=== PATIENT | female | born 1985 | race Caucasian/White ===

== ENCOUNTER 2020-09-28 08:03 | Observation (INO) ==
[~2020-09-28 08:03] MED LIST: Vancomycin 2,000 MG/520 ML IV.SOLN IVPB ONE
[2020-09-28] MEDS ORDERED: CeFAZolin Syr 3,000MG/30 ML 3,000 MG/30 ML SYRINGE IVPB ONE (08:24)
[2020-09-28] MEDS ORDERED: *HR* Rocuronium Bromide 50 MG/5 ML VIAL ONE (09:07)
[2020-09-28] MEDS ORDERED: *HR* Midazolam HCl 2 MG/2 ML VIAL ONE (09:07)
[2020-09-28] MEDS ORDERED: Dexamethasone 4 MG/ML VIAL ONE ×2 (09:07→13:08)
[2020-09-28] MEDS ORDERED: Lidocaine HCL 4 ML Topical Solution (Laryng-O-Jet Kit Sterile Pak) TP ONE (09:07)
[2020-09-28] MEDS ORDERED: Lidocaine -MPF 2% 2 ML VIAL ONE (09:07)
[2020-09-28] MEDS ORDERED: Ondansetron 4 MG/2 ML VIAL ONE (09:07)
[2020-09-28] MEDS ORDERED: *HR* Propofol 200 MG/20 ML VIAL IVP ONE ×2 (09:07→11:18)
[2020-09-28] MEDS ORDERED: Scopolamine Patch 1.5 MG PATCH.TD72 TD ONE (09:13)
[2020-09-28] MEDS ORDERED: Ondansetron 4 MG/2 ML VIAL IVP PRN (09:14)
[2020-09-28] MEDS ORDERED: Promethazine 6.25 MG in Water for inj. (sterile) 20 ML IVPB PRN (09:14)
[2020-09-28] MEDS ORDERED: *HR* OxyCODONE Immed Rel 5 MG TABLET PO PRN (09:14)
[2020-09-28] MEDS: Ringers Solution, Lactated 1,000 ML IVC SCH ×2 (09:25→15:43)
[2020-09-28] MEDS ORDERED: *HR* Remifentanil 1 MG VIAL IVP ONE ×2 (09:42→12:34)
[2020-09-28] MEDS ORDERED: *HR* Phenylephrine 10 MG/ML VIAL ONE ×2 (10:11→14:05)
[2020-09-28] MEDS ORDERED: Bacitracin 50,000 UNIT, Polymyxin B Sulfate 500,000 UNIT, Sodium Chloride IRRigation 1,... IR ONE (10:15)
[2020-09-28] MEDS ORDERED: EPHEDrine 50 MG/ML VIAL ONE (10:54)
[2020-09-28] MEDS ORDERED: *HR* HYDROMORPHONE 2 MG/ML VIAL ONE (14:36)
[2020-09-28] MEDS ORDERED: *HR* PHENYLEPHRINE 1,000 MCG/10 ML SYRINGE IVP ONE (14:48)
[2020-09-28] MEDS: *HR* HYDROmorphone PF 0.5 MG/0.5 ML SYRINGE IVP PRN ×4 (15:16→16:00)
[2020-09-28] MEDS: *HR* OxyCODONE Immed Rel 5 MG TABLET PO PRN ×2 (18:45→23:06)
[2020-09-28] MEDS ORDERED: *HR* Metformin 500 MG TABLET PO SCH (22:25)
[2020-09-28] MEDS ORDERED: lamoTRIgine 100 MG TABLET PO SCH (22:30)
[2020-09-28] MEDS: CeFAZolin 2 GM/120 ML BAG IVPB SCH (23:19)
[2020-09-29] MEDS ORDERED: Naloxone 0.4 MG/ML INJ IVP PRN (05:51)
[2020-09-29] MEDS ORDERED: CeFAZolin 2 GM/120 ML BAG IVPB SCH (05:51)
[2020-09-29] MEDS ORDERED: Ondansetron 4 MG/2 ML VIAL IVP PRN (05:51)
[2020-09-29] MEDS ORDERED: *HR* HYDROcodone/Acet 5/325 mg TABLET PO PRN (05:51)
[2020-09-29] MEDS ORDERED: Acetaminophen 325 MG TABLET PO PRN (05:51)
[2020-09-29] MEDS ORDERED: Ringers Solution, Lactated 1,000 ML IVC SCH (05:51)
[2020-09-29] MEDS: CeFAZolin 2 GM/120 ML BAG IVPB SCH (06:30)
[2020-09-29] MEDS: *HR* OxyCODONE Immed Rel 5 MG TABLET PO PRN ×2 (06:31→13:35)
[2020-09-29] MEDS ORDERED: *HR* Metformin 500 MG TABLET PO SCH (08:00)
[2020-09-29] MEDS: Budesonide/Formoterol 80/4.5 1 PUFF INH IH SCH ×2 (08:14→20:10)
[2020-09-29] MEDS ORDERED: atenoloL 50 MG TABLET PO SCH (09:00)
[2020-09-29] MEDS ORDERED: Bumetanide 1 MG TABLET PO SCH (09:00)
[2020-09-29] MEDS ORDERED: lisinopriL 20 MG TABLET PO SCH (09:00)
[2020-09-29] MEDS: tiZANidine 4 MG TABLET PO SCH ×3 (09:14→21:47)
[2020-09-29] MEDS: Venlafaxine XR (24 HR) 150 MG CAP.ER.24H PO SCH (09:15)
[2020-09-29] MEDS: *HR* Metformin 500 MG TABLET PO SCH ×3 (09:15→21:47)
[2020-09-29] MEDS: lamoTRIgine 100 MG TABLET PO SCH (09:16)
[2020-09-29] MEDS: Pregabalin 75 MG CAPSULE PO SCH ×3 (09:16→21:47)
[2020-09-29] MEDS: Vilazodone Hcl [Viibryd] PO SCH (09:19)
[2020-09-29] MEDS: LINACLOTIDE 145 MCG PO SCH (09:19)
[2020-09-29] MEDS: ESTARYLLA PO SCH (09:19)
[2020-09-29] MEDS: Cyprohepatdine 4 MG TABLET PO SCH ×2 (09:20→21:45)
[2020-09-29] MEDS ORDERED: 0.9 % Sodium Chloride 500 ML IVC ONE (18:10)
[2020-09-29] MEDS ORDERED: 0.9 % Sodium Chloride 1,000 ML IVC SCH (18:15)
[2020-09-29 18:37] LABS: Basophils # 0.1 K/mcL (0.0-0.2); Basophils % 0.5 %; Eosinophils # 0.1 K/mcL (0.0-0.6); Eosinophils % 0.5 %; Hematocrit 33.3 % (35.3-44.9); Hemoglobin 10.6 g/dL (11.5-15.4); Immature Granulocytes % 0.6 % (0-4); Lymphocytes # 2.3 K/mcL (0.6-4.6); Lymphocytes % 17.5 %; Mean Corpuscular HGB Conc 31.8 g/dL (31.6-35.5); Mean Corpuscular Hemoglobin 28.7 pg (28.0-33.3); Mean Corpuscular Volume 90.2 fL (83.0-100.0); Monocytes # 0.9 K/mcL (0.0-1.3); Monocytes % 7.1 %; Neutrophils # 9.7 K/mcL (1.6-8.9); Platelet Count 234 K/mcL (140-400); Red Blood Count 3.69 M/mcL (3.82-4.97); Segmented Neutrophils % 73.8 %; White Blood Count 13.2 K/mcL (4.3-11.1)
[2020-09-29 18:58] LABS: BUN/Creatinine Ratio 14 (6-26); Blood Urea Nitrogen 18 mg/dL (6-20); Calcium 8.5 mg/dL (8.6-10.3); Carbon Dioxide 25 mEq/L (23-29); Chloride 107 mEq/L (98-107); Glucose 134 mg/dL (70-105); Osmolality,Calculated 290 (280-300); Potassium 4.4 mEq/L (3.5-5.1); Sodium 138 mEq/L (136-145); eGFR For African Americans 56 (> 60); eGFR For Non-African Americans 46 (> 60)
[2020-09-29 19:20] LABS: Troponin I < 0.03 ng/mL (< 0.04)
[2020-09-29] MEDS ORDERED: traZODone 50 MG TABLET PO SCH (21:00)
[2020-09-29] MEDS ORDERED: Ketorolac 30 MG/ML VIAL IVP ONE (21:58)
[2020-09-29] MEDS ORDERED: 0.9 % Sodium Chloride 1,000 ML IVC ONE (23:14)
[2020-09-30] MEDS ORDERED: 0.9 % Sodium Chloride 1,000 ML IVC ONE (01:19)
[2020-09-30 02:37] LABS: Hematocrit 34.1 % (35.3-44.9); Hemoglobin 10.8 g/dL (11.5-15.4)
[2020-09-30] MEDS ORDERED: 0.9 % Sodium Chloride 500 ML IVC SCH (03:32)
[2020-09-30] MEDS ORDERED: 0.9 % Sodium Chloride 500 ML IVC ONE ×2 (03:45→04:00)
[2020-09-30 07:34] LABS: BUN/Creatinine Ratio 21 (6-26); Blood Urea Nitrogen 20 mg/dL (6-20); Carbon Dioxide 23 mEq/L (23-29); Chloride 107 mEq/L (98-107); Glucose 109 mg/dL (70-105); Osmolality,Calculated 287 (280-300); Potassium 3.9 mEq/L (3.5-5.1); Sodium 137 mEq/L (136-145); eGFR For African Americans > 60 (> 60); eGFR For Non-African Americans > 60 (> 60)
[2020-09-30] MEDS: Pregabalin 75 MG CAPSULE PO SCH (08:59)
[2020-09-30] MEDS: lamoTRIgine 100 MG TABLET PO SCH (08:59)
[2020-09-30] MEDS: Venlafaxine XR (24 HR) 150 MG CAP.ER.24H PO SCH (09:00)
[2020-09-30] MEDS: Vilazodone Hcl [Viibryd] PO SCH (09:01)
[2020-09-30] MEDS: *HR* Metformin 500 MG TABLET PO SCH (09:01)
[2020-09-30] MEDS: ESTARYLLA PO SCH (09:03)
[2020-09-30] MEDS: Cyprohepatdine 4 MG TABLET PO SCH (09:04)
[2020-09-30] MEDS: tiZANidine 4 MG TABLET PO SCH (09:05)
[2020-09-30] MEDS: LINACLOTIDE 145 MCG PO SCH (09:05)
[2020-09-30] MEDS: Budesonide/Formoterol 80/4.5 1 PUFF INH IH SCH (10:44)
[2020-09-30 10:52] VITALS: BP 129/74
[2020-09-30] MEDS: *HR* OxyCODONE Immed Rel 5 MG TABLET PO PRN (11:04)
== END 2020-09-30 12:45 | disposition home or self-care (01) ==
LOC: SAMDAY 08:03 → 3NENU 08:03
PROVIDERS: ADMIT Orthopaedic Surgery Orthopaedic Surgery of the Spine; ATTEND Orthopaedic Surgery Orthopaedic Surgery of the Spine

== ENCOUNTER 2022-03-27 06:08 | Inpatient (IN) ==
[2022-03-27] MEDS ORDERED: CeFAZolin Syr 2,000MG/20 ML 2,000 MG/20 ML SYRINGE IVPB ONE (06:48)
[2022-03-27] MEDS ORDERED: Ondansetron 4 MG/2 ML VIAL IVP PRN ×2 (07:00→10:28)
[2022-03-27] MEDS ORDERED: Famotidine 20 MG/2 ML VIAL IVP ONE (07:00)
[2022-03-27] MEDS ORDERED: Ringers Solution, Lactated 1,000 ML IVC SCH ×2 (07:00→10:28)
[2022-03-27] MEDS ORDERED: Acetaminophen IV 1,000 MG/100 ML BAG IVPB ONE (07:00)
[2022-03-27] MEDS ORDERED: *HR* HYDROmorphone PF 0.5 MG/0.5 ML SYRINGE IVP PRN (07:00)
[2022-03-27] MEDS ORDERED: Scopolamine Patch 1.5 MG PATCH.TD72 TD ONE (07:12)
[2022-03-27] MEDS ORDERED: Vancomycin 1,000 MG VIAL ONE (07:15)
[2022-03-27] MEDS ORDERED: *HR* Midazolam HCl 2 MG/2 ML VIAL ONE (07:18)
[2022-03-27] MEDS ORDERED: *HR* Propofol 200 MG/20 ML VIAL IVP ONE (07:18)
[2022-03-27] MEDS ORDERED: *HR* FentaNYL (PF) 100 MCG/2 ML VIAL ONE (07:18)
[2022-03-27] MEDS ORDERED: Celecoxib 200 MG CAPSULE PO ONE (07:30)
[2022-03-27] MEDS ORDERED: Lidocaine -MPF 2% 5 ML VIAL ONE (07:32)
[2022-03-27] MEDS ORDERED: Ondansetron 4 MG/2 ML VIAL ONE (07:32)
[2022-03-27] MEDS ORDERED: *HR* Succinylcholine 200 MG/10 ML VIAL IVP ONE (07:32)
[2022-03-27] MEDS ORDERED: *HR* Rocuronium Bromide 50 MG/5 ML VIAL ONE (07:32)
[2022-03-27] MEDS ORDERED: Lidocaine HCL 4 ML Topical Solution (Laryng-O-Jet Kit Sterile Pak) TP ONE (07:52)
[2022-03-27] MEDS ORDERED: *HR* HYDROMORPHONE 2 MG/ML VIAL ONE (08:35)
[2022-03-27] MEDS ORDERED: EPHEDrine 50 MG/ML VIAL ONE (08:47)
[2022-03-27] MEDS ORDERED: Sugammadex Sodium 200 MG/2 ML VIAL IV ONE (09:04)
[2022-03-27] MEDS: *HR* FentaNYL (PF) 100 MCG/2 ML VIAL IVP PRN ×2 (09:52→09:57)
[2022-03-27] MEDS ORDERED: Albuterol 2.5 MG/3 ML NEBULIZER IH PRN (10:28)
[2022-03-27] MEDS ORDERED: Acetaminophen 325 MG TABLET PO PRN (10:28)
[2022-03-27] MEDS ORDERED: Naloxone 0.4 MG/ML INJ IVP PRN (10:28)
[2022-03-27] MEDS ORDERED: *HR* HYDROcodone/Acet 5/325 mg TABLET PO PRN (10:28)
[2022-03-27] MEDS ORDERED: tiZANidine 4 MG TABLET PO PRN (10:42)
[2022-03-27] MEDS: *HR* OxyCODONE Immed Rel 5 MG TABLET PO PRN ×3 (13:24→23:18)
[2022-03-27] MEDS: CeFAZolin 2 GM/120 ML BAG IVPB SCH ×2 (15:50→23:14)
[2022-03-27] MEDS ORDERED: traZODone 50 MG TABLET PO SCH (21:00)
[2022-03-27] MEDS ORDERED: lamoTRIgine 100 MG TABLET PO SCH (21:00)
[2022-03-28 03:54] VITALS: PULSE 60
[2022-03-28 05:59] VITALS: BP 105/58; TEMP 98.1; O2SAT 95
[2022-03-28] MEDS ORDERED: Celecoxib 200 MG CAPSULE PO ONE (07:00)
[2022-03-28] MEDS: *HR* OxyCODONE Immed Rel 5 MG TABLET PO PRN ×2 (07:13→11:01)
[2022-03-28] MEDS ORDERED: Vilazodone Hcl [Viibryd] 20 MG Tablet PO SCH (09:00)
[2022-03-28] MEDS ORDERED: BIOTIN 10000 MCG PO SCH (09:00)
[2022-03-28] MEDS ORDERED: Venlafaxine XR (24 HR) 150 MG CAP.ER.24H PO SCH (09:00)
[2022-03-28] MEDS ORDERED: NORGESTIMATE ETHINYL ESTRADIOL PO SCH (09:00)
[2022-03-28] MEDS ORDERED: Linaclotide [Linzess] 145 MCG Capsule PO SCH (09:00)
[2022-03-28] MEDS ORDERED: Budesonide/Formoterol 160/4.5 1 PUFF INH IH SCH (10:00)
== END 2022-03-28 11:00 | disposition home or self-care (01) | DRG 310 ==
LOC: SDCAOSI 06:08 → 4WAOSI 10:05
PROVIDERS: ADMIT Orthopaedic Surgery Orthopaedic Surgery of the Spine; ATTEND Orthopaedic Surgery Orthopaedic Surgery of the Spine